=== PATIENT | male | born 1965 | race Caucasian/White ===

== ENCOUNTER 2019-09-13 17:12 | Inpatient (IN) | payer BC, OTHER ==
--- NOTE | 2019-09-13 17:47 | ER Document Report ---
ED General - General Chief Complaint: Palpitations Stated Complaint: RAPID HEART RATE Time Seen by Provider: 09/13/19 17:42 Notes: 54-year-old man presents to the emergency department with a history of upper respiratory tract infection with associated cough seen approximately 1 week ago at the urgent care and started on Augmentin. He went to see his primary care doctor earlier in the week, the Augmentin was discontinued because of diarrhea and he was given a different antibiotic. He presented to the clinic today for follow-up, continued cough and was found to be tachycardic in the 140-160 range. Patient has a history of CAD and a stent performed in 2016. Because of the cardiac history and the resting tachycardia, he was sent to the emergency department for further evaluation and treatment. Patient denies chest pain, he has shortness of breath with exertion and continued coughing. He denies any excessive swelling or fever. TRAVEL OUTSIDE OF THE [place] IN LAST 30 DAYS: No - Related Data Allergies/Adverse Reactions: No Known Allergies Allergy (Verified 01/29/16 22:19) Past Medical History - General Information source: Patient - Social History Smoking Status: Unknown if Ever Smoked Family History: Reviewed & Not Pertinent Review of Systems - Review of Systems Notes: Constitutional: Negative for fever. HENT: Negative for sore throat. Eyes: Negative for visual changes. Cardiovascular: + Tachycardia, negative for chest pain. Respiratory: + Cough, + shortness of breath. Gastrointestinal: Negative for abdominal pain, vomiting or diarrhea. Genitourinary: Negative for dysuria. Musculoskeletal: Negative for back pain. Skin: Negative for rash. Neurological: Negative for headaches, weakness or numbness. 10 point ROS negative except as marked above and in HPI. Physical Exam - Vital signs Vitals: Temp Pulse Resp BP Pulse Ox 98.2 F 148 H 22 H 123/82 96 09/13/19 17:28 09/13/19 17:28 09/13/19 17:28 09/13/19 17:28 09/13/19 17:28 - Notes Notes: PHYSICAL EXAMINATION: Physical Exam: General: Morbidly obese 54-year-old man in no acute distress HEENT: NC/AT, pupils equal round and reactive to light, MM moist,nares clear, oropharynx clear, airway patent Neck: supple, no adenopathy, no masses. Good range of motion Lungs: clear, no wheezing, no rales no rhonchi CVS: Tachycardic, rate and rhythm no murmur gallop or rub Abdomen: Soft, active, nontender, no masses, no hepatosplenomegaly Ext: No edema, clubbing or cyanosis. Neuro: Alert and responsive, moving all 4 extremities on command, cranial nerves intact, no focal findings Skin: Intact no open lesions, no rash PSYCH: Normal mood, normal affect. Course - Re-evaluation Re-evalutation: 09/13/19 20:11 Patient was given IV dose of Cardizem and metoprolol, rate slowed down to approximately 118, he then developed a flutter/A. fib with a 2-1 AV block. Presently the patient is in a normal sinus rhythm with a rhythm rate of 76. I have discussed the patient with Dr. Greene the primary physician and he had requested chest x-ray, CTA, Eliquis while the patient was in the A. fib rhythm. He is being recontacted regarding the conversion to sinus rhythm. - Vital Signs Vital signs: Temp Pulse Resp BP Pulse Ox 97.7 F 79 18 125/76 100 09/14/19 08:17 09/14/19 08:17 09/14/19 08:17 09/14/19 08:17 09/14/19 08:17 - Laboratory Result Diagrams: 09/14/19 04:22 09/14/19 04:22 Laboratory results interpreted by me: 09/13/19 09/13/19 17:36 17:36 RDW 14.2 H ALT 53 H Creatine Kinase 647 H - EKG Interpretation by Tn Rate: Tachycardia - Initial EKG: Sinus tachycardia rate of 148. Repeat EKG reveals atrial flutter with a 2-1 AV block, borderline prolonged QT interval rate of 122. Third EKG normal sinus rhythm, rate of 75. Discharge - Discharge Clinical Impression: Atrial flutter with rapid ventricular response, Cough, Body mass index (BMI) greater than or equal to 70 in adult Condition: Good Disposition: ADMITTED INPATIENT Admitting Provider: Jc Unit Admitted: [facility]
[2019-09-13] MEDS: NORMAL SALINE 1000 ML 1,000 ML IV PRN ×2 (18:11→19:31)
[2019-09-13 18:51] LABS: ABSOLUTE EOSINOPHILS # (AUTO) 0.1 10^3/uL (0.0-0.6); ABSOLUTE LYMPHOCYTES (AUTO) 1.5 10^3/uL (0.5-4.7); ABSOLUTE MONOCYTES (AUTO) 0.5 10^3/uL (0.1-1.4); ABSOLUTE NEUT (AUTO) 2.5 10^3/uL (1.7-8.2); BASOPHILS % (AUTO) 0.2 % (0-2); EOSINOPHILS % (AUTO) 1.5 % (0-6); HEMATOCRIT 42.9 % (37.9-51.0); HEMOGLOBIN 14.3 g/dL (13.5-17.0); LYMPHOCYTES % (AUTO) 33.4 % (13-45); MEAN CORPUSCULAR HEMOGLOBIN 29.2 pg (27.0-33.4); MEAN CORPUSCULAR HGB CONC 33.4 g/dL (32.0-36.0); MEAN CORPUSCULAR VOLUME 87 fl (80-97); MONOCYTES % (AUTO) 10.3 % (3-13); PLATELET COUNT 192 10^3/uL (150-450); RED BLOOD COUNT 4.91 10^6/uL (4.35-5.55); RED CELL DISTRIBUTION WIDTH 14.2 % (11.5-14.0); SEGMENTED NEUTROPHILS % (AUTO) 54.6 % (42-78); TOTAL CELLS COUNTED % (AUTO) 100 %; WHITE BLOOD COUNT 4.6 10^3/uL (4.0-10.5)
[2019-09-13 18:56] LABS: ALBUMIN 3.9 g/dL (3.5-5.0); ALKALINE PHOSPHATASE 84 U/L (38-126); ANION GAP 8 (5-19); ASPARTATE AMINO TRANSFERASE 52 U/L (17-59); BILIRUBIN,DIRECT 0.2 mg/dL (0.0-0.4); BILIRUBIN,TOTAL 0.8 mg/dL (0.2-1.3); BLOOD UREA NITROGEN 16 mg/dL (7-20); CALCIUM 9.1 mg/dL (8.4-10.2); CARBON DIOXIDE 30 mmol/L (22-30); CHLORIDE 102 mmol/L (98-107); CREATINE KINASE 647 U/L (55-170); GLUCOSE 110 mg/dL (75-110)
[2019-09-13] MEDS ORDERED: METOPROLOL TARTRATE PF/INJ 5 MG/5 ML SDV IV ONE (18:56)
[2019-09-13] MEDS ORDERED: GUAIFENESIN/D-METHORPHAN (200-20 MG) SYRUP 10 ML PO ONE (18:56)
[2019-09-13] MEDS ORDERED: DILTIAZEM HCL INJ 25 MG/5 ML VIAL IV ONE (18:58)
[2019-09-13 19:08] LABS: CREATINE KINASE MB 1.04 ng/mL (<4.55); TROPONIN I 0.013 ng/mL
[2019-09-13] MEDS ORDERED: APIXABAN 5 MG TABLET PO ONE (19:46)
--- NOTE | 2019-09-13 20:57 | RADIOLOGY REPORT (SQ) ---
XR CHEST 1 VIEW EXAM DATE: 09/13/2019 7:47 PM MEDICAL BILLING CLERK HISTORY: Cough. COMPARISON: 01/29/2016 FINDINGS: Stable cardiomegaly without pulmonary vascular congestion. No focal consolidation is identified. No pleural effusions or pneumothorax. IMPRESSION: No evidence of acute cardiopulmonary disease.
--- NOTE | 2019-09-13 21:15 | PDOC H&P ---
History of Present Illness Admission Date/PCP: CEFERINO FREY MD Patient complains of: Tachycardia persistent cough History of Present Illness: MARK BLACKBURN is a 54 year old male This is a 54-year-old male's with a history of the coronary artery disease status post stent placement history of the hypertension hyperlipidemia sleep apnea morbid obesity type 2 diabetes struggling from the cough for the last 2 weeks initially went to the urgent care but patient was prescribed Augmentin and patients developed diarrhea came back to the office stop the Augmentin and start on Omnicef and a cough drops Patient still persistent cough and according to the patient is a dry cough and a hacking cough does not produce any sputum no fever no chills Patient also came to the office today because of uncontrolled cough on and off with episodic in office patient's pulse ox is 97% but patient's heart rate is running 1 40-1 60 range EKG was performed in the office was persistent with the 140 heart rate with the sinus tachycardia with possible a flutter decided to send to the emergency departments In the ER patient heart rate was running 140+ with the a flutter patient is giving the Cardizem's and p.o. metoprolol and converted to sinus rhythms At this point decided to admit the patient for further evaluations Patient's otherwise denied any chest pain no short of breath except that cough Patient was taking the robitussin DM and has several Drops for the last 1 week Past Medical History Cardiac Medical History: Reports: Coronary Artery Disease, Myocardial Infarction, Hyperlipidema, Hypertension Pulmonary Medical History: Reports: Sleep Apnea Endocrine Medical History: Reports: Diabetes Mellitus Type 2 Past Surgical History Past Surgical History: Reports: Cardiac Catheterization Social History Information Source: Patient Smoking Status: Never Smoker Electronic Cigarette use?: No Hx Recreational Drug Use: No Family History Family History: Reviewed & Not Pertinent Parental Family History Reviewed: Yes Children Family History Reviewed: Yes Sibling(s) Family History Reviewed.: Yes Medication/Allergy Allergies/Adverse Reactions: No Known Allergies Allergy (Verified 01/29/16 22:19) Review of Systems Constitutional: ABSENT: chills, fever(s), headache(s), weight gain, weight loss Eyes: ABSENT: visual disturbances Ears: ABSENT: hearing changes Cardiovascular: ABSENT: chest pain, dyspnea on exertion, edema, orthropnea, palpitations Respiratory: PRESENT: cough. ABSENT: hemoptysis Gastrointestinal: ABSENT: abdominal pain, constipation, diarrhea, hematemesis, hematochezia, nausea, vomiting Genitourinary: ABSENT: dysuria, hematuria Musculoskeletal: ABSENT: joint swelling Integumentary: ABSENT: rash, wounds Neurological: ABSENT: abnormal gait, abnormal speech, confusion, dizziness, focal weakness, syncope Psychiatric: ABSENT: anxiety, depression, homidical ideation, suicidal ideation Endocrine: ABSENT: cold intolerance, heat intolerance, menstrual abnormalities, polydipsia, polyuria Hematologic/Lymphatic: ABSENT: easy bleeding, easy bruising, lymphadenopathy Physical Exam Vital Signs: Temp Pulse Resp BP Pulse Ox 97.9 F 148 H 26 H 142/106 H 96 09/13/19 19:37 09/13/19 17:28 09/13/19 20:01 09/13/19 20:01 09/13/19 20:01 Intake & Output 09/12/19 09/13/19 09/14/19 06:59 06:59 06:59 Intake Total 1999 Balance 1999 Weight 206 kg General appearance: PRESENT: no acute distress, well-developed, well-nourished Head exam: PRESENT: atraumatic, normocephalic Eye exam: PRESENT: conjunctiva pink, EOMI, PERRLA. ABSENT: scleral icterus Ear exam: PRESENT: normal external ear exam Mouth exam: PRESENT: moist, tongue midline Neck exam: PRESENT: full ROM. ABSENT: carotid bruit, JVD, lymphadenopathy, thyromegaly Respiratory exam: PRESENT: decreased breath sounds Cardiovascular exam: PRESENT: RRR, tachycardia. ABSENT: diastolic murmur, rubs, systolic murmur Pulses: PRESENT: normal dorsalis pedis pul, +2 pedal pulses bilateral Vascular exam: PRESENT: normal capillary refill GI/Abdominal exam: PRESENT: normal bowel sounds, soft. ABSENT: distended, guarding, mass, organolmegaly, rebound, tenderness Rectal exam: PRESENT: deferred Extremities exam: ABSENT: pedal edema Musculoskeletal exam: PRESENT: ambulatory Neurological exam: PRESENT: alert, awake, oriented to person, oriented to place, oriented to time, oriented to situation, CN II-XII grossly intact. ABSENT: motor sensory deficit Psychiatric exam: PRESENT: appropriate affect, normal mood. ABSENT: homicidal ideation, suicidal ideation Skin exam: PRESENT: dry, intact, warm. ABSENT: cyanosis, rash Results Laboratory Results: 09/13/19 17:36 09/13/19 17:36 09/13/19 09/13/19 17:36 17:36 WBC 4.6 RBC 4.91 Hgb 14.3 Hct 42.9 MCV 87 MCH 29.2 MCHC 33.4 RDW 14.2 H Plt Count 192 Seg Neutrophils % 54.6 Sodium 139.5 Potassium 4.0 Chloride 102 Carbon Dioxide 30 Anion Gap 8 BUN 16 Creatinine 1.00 Est GFR ( Amer) > 60 Glucose 110 Calcium 9.1 Total Bilirubin 0.8 AST 52 Alkaline Phosphatase 84 Total Protein 7.0 Albumin 3.9 09/13/19 09/13/19 17:36 17:36 Creatine Kinase 647 H CK-MB (CK-2) 1.04 Troponin I 0.013 Impressions: Chest X-Ray 09/13/19 19:47 IMPRESSION: No evidence of acute cardiopulmonary disease. Assessment & Plan - Diagnosis (1) Atrial flutter with rapid ventricular response Is this a current diagnosis for this admission?: Yes Plan: Patient is converted to sinus rhythms Start the patient on a Cardizem Put in the IMCU Consult the cardiology Patient's last echocardiogram done in December [address] Nolasco with normal EF no other abnormalities (2) Cough Is this a current diagnosis for this admission?: Yes Plan: Going for 2 weeks cough most likely had dry hacking cough We will start the patient on the steroids and the doxycycline (3) Hypertension Qualifiers: Hypertension type: essential hypertension Qualified Code(s): I10 - Essential (primary) hypertension Is this a current diagnosis for this admission?: Yes Plan: Reduce the current medications (4) Hyperlipidemia Qualifiers: Hyperlipidemia type: unspecified Qualified Code(s): E78.5 - Hyperlipidemia, unspecified Is this a current diagnosis for this admission?: Yes Plan: Continues a statin (5) Sleep apnea Qualifiers: Sleep apnea type: unspecified type Qualified Code(s): G47.30 - Sleep apnea, unspecified Is this a current diagnosis for this admission?: Yes Plan: Continue CPAP (6) Coronary artery disease Qualifiers: Coronary Disease-Associated Artery/Lesion type: unspecified vessel or lesion type Associated angina: without angina Is this a current diagnosis for this admission?: Yes (7) Type 2 diabetes mellitus 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: without intermediate use Is this a current diagnosis for this admission?: Yes - Time Time Spent: 50 to 70 Minutes Medications reviewed and adjusted accordingly: Yes Anticipated discharge: Home Within: Other - Inpatient Certification Based on my medical assessment, after consideration of the patient's comorbidities, presenting symptoms, or acuity I expect that the services needed warrant INPATIENT care.: Yes I certify that my determination is in accordance with my understanding of Medicare's requirements for reasonable and necessary INPATIENT services [42 CFR 412.3e].: Yes Medical Necessity: Failure to Improve With Outpatient Therapy, Significant Comorbidiites Make Outpatient Treatment Too Risky, Need For IV Fluids, Need for IV Antibiotics Post Hospital Care: D/C Mess Cook Documentation - Plan Summary Plan Summary: Admit the patient's in the IMCU
[2019-09-13] MEDS ORDERED: ACETAMINOPHEN 325 MG TABLET PO PRN (21:16)
[2019-09-13] MEDS ORDERED: NORMAL SALINE 1000 ML 1,000 ML IV PRN (21:16)
--- NOTE | 2019-09-13 21:24 | RADIOLOGY REPORT (SQ) ---
CT CHEST ANGIOGRAPHY WITHOUT THEN WITH IV CONTRAST EXAM DATE: 09/13/2019 7:45 PM LINE PRODUCTION COOK HISTORY: Shortness of breath. COMPARISON: None. TECHNIQUE: CT angiogram of the chest with IV contrast. 3-D MIP images were obtained in coronal and sagittal reconstructions. This exam was performed according to our departmental dose-optimization program, which includes automated exposure control, adjustment of the mA and/or kV according to patient size and/or use of iterative reconstruction technique. FINDINGS: No filling defects are seen in the pulmonary trunk or the left and right main pulmonary artery. There is limited evaluation of the segmental branches due to suboptimal bolus timing. The thyroid gland is normal. No mediastinal or hilar adenopathy. The heart size is normal without pericardial effusion. The thoracic aorta is normal caliber. No consolidation, pleural effusion, or pneumothorax is identified. The visualized upper abdomen demonstrates no acute findings. No acute osseous findings are seen. IMPRESSION: No central pulmonary embolism.
[2019-09-13] MEDS: DILTIAZEM HCL 30 MG TABLET PO SCH (21:31)
[2019-09-13] MEDS: GUAIFENESIN 600 MG TABLET.SA PO SCH (21:31)
[2019-09-13] MEDS ORDERED: GLUCAGON,HUMAN RECOMB 1 MG INJ IM PRN (21:31)
[2019-09-13] MEDS ORDERED: DEXTROSE 50%-WATER 25 GM/50 ML DISP.SYRIN IV PRN ×2 (21:31)
[2019-09-13] MEDS: FAMOTIDINE 20 MG TABLET PO SCH (21:31)
[2019-09-13] MEDS ORDERED: DEXTROSE 40% GEL 15 GM TUBE PO PRN ×2 (21:31)
[2019-09-13] MEDS: DOXYCYCLINE HYCLATE 100 MG TABLET PO SCH (21:31)
[2019-09-13] MEDS: INSULIN LISPRO 100 UNIT/ML 3 ML VIAL SUBCUT SCH (21:42)
[2019-09-13 22:50] LABS: CREATINE KINASE MB 0.9 ng/mL (<4.55); TROPONIN I 0.017 ng/mL
[2019-09-14 00:04] LABS: APPEARANCE,URINE CLEAR; BILIRUBIN,URINE NEGATIVE (NEGATIVE); COLOR,URINE YELLOW; GLUCOSE, URINE NEGATIVE (NEGATIVE); KETONES,URINE NEGATIVE (NEGATIVE); LEUKOCYTE ESTERASE,URINE NEGATIVE (NEGATIVE); NITRITE,URINE NEGATIVE (NEGATIVE); PROTEIN,URINE NEGATIVE (NEGATIVE); URINE SPECIFIC GRAVITY 1.058
[2019-09-14 05:26] LABS: ABSOLUTE EOSINOPHILS # (AUTO) 0.1 10^3/uL (0.0-0.6); ABSOLUTE LYMPHOCYTES (AUTO) 1.1 10^3/uL (0.5-4.7); ABSOLUTE MONOCYTES (AUTO) 0.4 10^3/uL (0.1-1.4); ABSOLUTE NEUT (AUTO) 1.9 10^3/uL (1.7-8.2); BASOPHILS % (AUTO) 0.3 % (0-2); EOSINOPHILS % (AUTO) 1.7 % (0-6); HEMATOCRIT 36.3 % (37.9-51.0); LYMPHOCYTES % (AUTO) 31.3 % (13-45); MEAN CORPUSCULAR HEMOGLOBIN 29.1 pg (27.0-33.4); MEAN CORPUSCULAR HGB CONC 33.3 g/dL (32.0-36.0); MEAN CORPUSCULAR VOLUME 87 fl (80-97); MONOCYTES % (AUTO) 10.9 % (3-13); PLATELET COUNT 173 10^3/uL (150-450); RED BLOOD COUNT 4.15 10^6/uL (4.35-5.55); SEGMENTED NEUTROPHILS % (AUTO) 55.8 % (42-78); TOTAL CELLS COUNTED % (AUTO) 100 %; WHITE BLOOD COUNT 3.5 10^3/uL (4.0-10.5)
[2019-09-14 05:29] LABS: HEMOGLOBIN 12.1 g/dL (13.5-17.0)
[2019-09-14] MEDS: DILTIAZEM HCL 30 MG TABLET PO SCH (05:31)
[2019-09-14 05:43] LABS: ALBUMIN 3.2 g/dL (3.5-5.0); ALKALINE PHOSPHATASE 76 U/L (38-126); ANION GAP 7 (5-19); ASPARTATE AMINO TRANSFERASE 45 U/L (17-59); BILIRUBIN,DIRECT 0.2 mg/dL (0.0-0.4); BLOOD UREA NITROGEN 15 mg/dL (7-20); CALCIUM 8.3 mg/dL (8.4-10.2); CARBON DIOXIDE 28 mmol/L (22-30); CHLORIDE 104 mmol/L (98-107); GLUCOSE 111 mg/dL (75-110)
[2019-09-14 05:52] LABS: CREATINE KINASE MB 2.1 ng/mL (<4.55); TROPONIN I 0.013 ng/mL
[2019-09-14] MEDS ORDERED: PANTOPRAZOLE SODIUM 40 MG TABLET.DR PO SCH (06:00)
[2019-09-14] MEDS ORDERED: GUAIFENESIN SYRP 200 MG/10 ML UDC PO PRN (06:57)
[2019-09-14] MEDS: INSULIN LISPRO 100 UNIT/ML 3 ML VIAL SUBCUT SCH ×2 (08:46→13:28)
[2019-09-14] MEDS: FAMOTIDINE 20 MG TABLET PO SCH (09:31)
[2019-09-14] MEDS: DOXYCYCLINE HYCLATE 100 MG TABLET PO SCH (09:31)
[2019-09-14] MEDS: GUAIFENESIN 600 MG TABLET.SA PO SCH (09:31)
--- NOTE | 2019-09-14 09:51 | PDOC PROGRESS REPORT ---
Subjective Progress Note for:: 09/14/19 Subjective:: Patient is currently doing well Patient is currently in a sinus rhythm Patient's denied any chest pain no short of breath Patient's cough is improving Reason For Visit: ATRIL FLUTTER,COUGH Physical Exam Vital Signs: Temp Pulse Resp BP Pulse Ox 97.7 F 79 18 125/76 100 09/14/19 08:17 09/14/19 08:17 09/14/19 08:17 09/14/19 08:17 09/14/19 08:17 Intake & Output 09/13/19 09/14/19 09/15/19 06:59 06:59 06:59 Intake Total 2300 Output Total 275 Balance 2024 Weight 207.5 kg General appearance: PRESENT: no acute distress, well-developed, well-nourished Head exam: PRESENT: atraumatic, normocephalic Eye exam: PRESENT: conjunctiva pink, EOMI, PERRLA. ABSENT: scleral icterus Ear exam: PRESENT: normal external ear exam Mouth exam: PRESENT: moist, tongue midline Neck exam: PRESENT: full ROM. ABSENT: carotid bruit, JVD, lymphadenopathy, thyromegaly Respiratory exam: PRESENT: clear to auscultation wilma Cardiovascular exam: PRESENT: RRR. ABSENT: diastolic murmur, rubs, systolic murmur Pulses: PRESENT: normal dorsalis pedis pul, +2 pedal pulses bilateral Vascular exam: PRESENT: normal capillary refill GI/Abdominal exam: PRESENT: normal bowel sounds, soft. ABSENT: distended, guarding, mass, organolmegaly, rebound, tenderness Rectal exam: PRESENT: deferred Extremities exam: ABSENT: pedal edema Musculoskeletal exam: PRESENT: ambulatory Neurological exam: PRESENT: alert, awake, oriented to person, oriented to place, oriented to time, oriented to situation, CN II-XII grossly intact. ABSENT: motor sensory deficit Psychiatric exam: PRESENT: appropriate affect, normal mood. ABSENT: homicidal ideation, suicidal ideation Skin exam: PRESENT: dry, intact, warm. ABSENT: cyanosis, rash Results Laboratory Results: 09/14/19 04:22 09/14/19 04:22 09/13/19 09/13/19 09/13/19 17:36 17:36 22:03 WBC 4.6 RBC 4.91 Hgb 14.3 Hct 42.9 MCV 87 MCH 29.2 MCHC 33.4 RDW 14.2 H Plt Count 192 Seg Neutrophils % 54.6 Sodium 139.5 Potassium 4.0 Chloride 102 Carbon Dioxide 30 Anion Gap 8 BUN 16 Creatinine 1.00 Est GFR ( Amer) > 60 Glucose 110 Calcium 9.1 Magnesium Total Bilirubin 0.8 AST 52 Alkaline Phosphatase 84 Total Protein 7.0 Albumin 3.9 TSH 3.04 Urine Color Urine Appearance Urine pH Ur Specific [place] Urine Protein Urine Glucose (UA) Urine Ketones Urine Blood Urine Nitrite Ur Leukocyte Esterase Urine WBC (Auto) Urine RBC (Auto) 09/13/19 09/14/19 09/14/19 23:29 04:22 04:22 WBC 3.5 L RBC 4.15 L Hgb 12.1 L D Hct 36.3 L MCV 87 MCH 29.1 MCHC 33.3 RDW 14.0 Plt Count 173 Seg Neutrophils % 55.8 Sodium 138.5 Potassium 4.0 Chloride 104 Carbon Dioxide 28 Anion Gap 7 BUN 15 Creatinine 0.92 Est GFR ( Amer) > 60 Glucose 111 H Calcium 8.3 L Magnesium 2.2 Total Bilirubin 1.0 AST 45 Alkaline Phosphatase 76 Total Protein 6.0 L Albumin 3.2 L TSH Urine Color YELLOW Urine Appearance CLEAR Urine pH 5.0 Ur Specific [place] 1.058 Urine Protein NEGATIVE Urine Glucose (UA) NEGATIVE Urine Ketones NEGATIVE Urine Blood NEGATIVE Urine Nitrite NEGATIVE Ur Leukocyte Esterase NEGATIVE Urine WBC (Auto) 1 Urine RBC (Auto) 1 09/13/19 09/13/19 09/13/19 17:36 17:36 22:03 Creatine Kinase 647 H 617 H CK-MB (CK-2) 1.04 Troponin I 0.013 09/13/19 09/14/19 09/14/19 22:03 04:22 04:22 Creatine Kinase 599 H CK-MB (CK-2) 0.90 2.10 Troponin I 0.017 0.013 Impressions: Chest/Abdomen CTA 09/13/19 19:45 IMPRESSION: No central pulmonary embolism. Chest X-Ray 09/13/19 19:47 IMPRESSION: No evidence of acute cardiopulmonary disease. Assessment & Plan - Diagnosis (1) Atrial flutter with rapid ventricular response Is this a current diagnosis for this admission?: Yes Plan: Lately converted to the sinus rhythm will wait for the cardiology (2) Cough Is this a current diagnosis for this admission?: Yes Plan: doxycycline's and the (3) Hypertension Qualifiers: Hypertension type: essential hypertension Qualified Code(s): I10 - Essential (primary) hypertension Is this a current diagnosis for this admission?: Yes (4) Hyperlipidemia Qualifiers: Hyperlipidemia type: unspecified Qualified Code(s): E78.5 - Hyperlipidemia, unspecified Is this a current diagnosis for this admission?: Yes (5) Sleep apnea Qualifiers: Sleep apnea type: unspecified type Qualified Code(s): G47.30 - Sleep apnea, unspecified Is this a current diagnosis for this admission?: Yes (6) Coronary artery disease Qualifiers: Coronary Disease-Associated Artery/Lesion type: unspecified vessel or lesion type Associated angina: without angina Is this a current diagnosis for this admission?: Yes (7) Type 2 diabetes mellitus 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
[2019-09-14] MEDS ORDERED: PREDNISONE 20 MG TABLET PO SCH (10:00)
[2019-09-14] MEDS ORDERED: ENOXAPARIN SODIUM INJ 40 MG/0.4 ML DISP.SYRIN SUBCUT SCH (10:00)
[2019-09-14] MEDS ORDERED: LOSARTAN POTASSIUM 50 MG TABLET PO SCH (11:00)
[2019-09-14] MEDS ORDERED: METOPROLOL TARTRATE 50 MG TABLET PO SCH (11:00)
[2019-09-14] MEDS ORDERED: CLOPIDOGREL BISULFATE 75 MG TABLET PO SCH (11:00)
[2019-09-14] MEDS ORDERED: EZETIMIBE 10 MG TABLET PO SCH (11:00)
[2019-09-14] MEDS ORDERED: ASPIRIN 81 MG TABLET, ENT COATED PO SCH (11:00)
[2019-09-14 11:29] LABS: CREATINE KINASE MB 3.09 ng/mL (<4.55)
[2019-09-14 11:30] LABS: TROPONIN I < 0.012 ng/mL
--- NOTE | 2019-09-14 12:26 | PDOC CONSULTATION ---
Consultation Consult Date: 09/14/19 Attending physician:: CEFERINO FREY Provider Consulted: BRIAN URIARTE Consult reason:: Atrial flutter fibrillation History of Present Illness Admission Date/PCP: 09/13/19 21:00 CEFERINO FREY MD Patient complains of: Shortness of breath History of Present Illness: MARK BLACKBURN is a 54 year old male, who was admitted through the emergency department after being sent from primary care physician's office because of elevated heart rate of 140. Patient claims that he has been recently suffering from cold and cough symptoms and was taking some OTC cough medication, mainly Robitussin-DM. He also had a course of antibiotics. Initially he had Augmentin which caused him to have diarrhea and subsequently changed to another antibiotics. In the emergency room patient was noted to be in atrial flutter fibrillation with increased heart rate response. Patient was given Cardizem and beta-melody following which he converted. He remains in sinus rhythm this morning and is wanting to go home. A 2D echo was ordered but can be performed as an outpatient now. Patient has history of sleep apnea and he claims compliance with it. Past Medical History Cardiac Medical History: Reports: Coronary Artery Disease, Myocardial Infarction, Hyperlipidema, Hypertension Pulmonary Medical History: Reports: Sleep Apnea Endocrine Medical History: Reports: Diabetes Mellitus Type 2 Past Surgical History Past Surgical History: Reports: Cardiac Catheterization, Coronary Stent Social History Information Source: Patient Smoking Status: Unknown if Ever Smoked Electronic Cigarette use?: No Hx Recreational Drug Use: No - Advance Directive Resuscitation Status: Full Code Family History Family History: Reviewed & Not Pertinent, Hypertension Parental Family History Reviewed: Yes Children Family History Reviewed: Yes Sibling(s) Family History Reviewed.: Yes Medication/Allergy Home Medications: Aspirin [Ecotrin 81 mg EC Tablet] 81 mg PO DAILY 09/14/19 Atorvastatin Calcium [Lipitor 80 mg Tablet] 80 mg PO QHS 09/14/19 Clopidogrel Bisulfate [Plavix 75 mg Tablet] 75 mg PO DAILY 09/14/19 Ezetimibe [Zetia 10 mg Tablet] 10 mg PO DAILY 09/14/19 Losartan Potassium 100 mg PO DAILY 09/14/19 Metformin HCl [Metformin HCl ER] 500 mg PO DAILY 09/14/19 Metoprolol Tartrate [Lopressor 50 mg Tablet] 50 mg PO DAILY 09/14/19 Pantoprazole Sodium [Protonix [address] Tablet] 40 mg PO DAILY #30 tablet. 09/14/19 Allergies/Adverse Reactions: No Known Allergies Allergy (Verified 01/29/16 22:19) Review of Systems Constitutional: PRESENT: other - Recent cold and cough symptoms.. ABSENT: chills, fever(s), headache(s), weight gain, weight loss Eyes: ABSENT: visual disturbances Ears: ABSENT: hearing changes Cardiovascular: ABSENT: chest pain, dyspnea on exertion, edema, orthropnea, palpitations Respiratory: ABSENT: cough, hemoptysis Gastrointestinal: ABSENT: abdominal pain, constipation, diarrhea, hematemesis, hematochezia, nausea, vomiting Genitourinary: ABSENT: dysuria, hematuria Musculoskeletal: ABSENT: joint swelling Integumentary: ABSENT: rash, wounds Neurological: ABSENT: abnormal gait, abnormal speech, confusion, dizziness, focal weakness, syncope Psychiatric: ABSENT: anxiety, depression, homidical ideation, suicidal ideation Endocrine: ABSENT: cold intolerance, heat intolerance, polydipsia, polyuria Hematologic/Lymphatic: ABSENT: easy bleeding, easy bruising Physical Exam Vital Signs: Temp Pulse Resp BP Pulse Ox 97.7 F 79 18 125/76 100 09/14/19 08:17 09/14/19 08:17 09/14/19 08:17 09/14/19 08:17 09/14/19 08:17 Intake & Output 09/13/19 09/14/19 09/15/19 06:59 06:59 06:59 Intake Total 2300 Output Total 275 Balance 2024 Weight 207.5 kg General appearance: PRESENT: no acute distress, well-developed, well-nourished Head exam: PRESENT: atraumatic, normocephalic Eye exam: PRESENT: conjunctiva pink, EOMI, PERRLA. ABSENT: scleral icterus Ear exam: PRESENT: normal external ear exam Mouth exam: PRESENT: moist, tongue midline Neck exam: ABSENT: carotid bruit, JVD, lymphadenopathy, thyromegaly Respiratory exam: PRESENT: clear to auscultation [place]. ABSENT: rales, rhonchi, wheezes Cardiovascular exam: PRESENT: RRR. ABSENT: diastolic murmur, rubs, systolic murmur Pulses: PRESENT: normal dorsalis pedis pul Vascular exam: PRESENT: normal capillary refill GI/Abdominal exam: PRESENT: normal bowel sounds, soft. ABSENT: distended, guarding, mass, organolmegaly, rebound, tenderness Rectal exam: PRESENT: deferred Extremities exam: PRESENT: full ROM. ABSENT: calf tenderness, clubbing, pedal edema Neurological exam: PRESENT: alert, awake, oriented to person, oriented to place, oriented to time, oriented to situation, CN II-XII grossly intact. ABSENT: motor sensory deficit Psychiatric exam: PRESENT: appropriate affect, normal mood. ABSENT: homicidal ideation, suicidal ideation Skin exam: PRESENT: dry, intact, warm. ABSENT: cyanosis, rash Results Laboratory Results: 09/14/19 04:22 09/14/19 04:22 09/13/19 09/13/19 09/13/19 17:36 17:36 22:03 WBC 4.6 RBC 4.91 Hgb 14.3 Hct 42.9 MCV 87 MCH 29.2 MCHC 33.4 RDW 14.2 H Plt Count 192 Seg Neutrophils % 54.6 Sodium 139.5 Potassium 4.0 Chloride 102 Carbon Dioxide 30 Anion Gap 8 BUN 16 Creatinine 1.00 Est GFR ( Amer) > 60 Glucose 110 Calcium 9.1 Magnesium Total Bilirubin 0.8 AST 52 Alkaline Phosphatase 84 Total Protein 7.0 Albumin 3.9 TSH 3.04 Urine Color Urine Appearance Urine pH Ur Specific [place] Urine Protein Urine Glucose (UA) Urine Ketones Urine Blood Urine Nitrite Ur Leukocyte Esterase Urine WBC (Auto) Urine RBC (Auto) 09/13/19 09/14/19 09/14/19 23:29 04:22 04:22 WBC 3.5 L RBC 4.15 L Hgb 12.1 L D Hct 36.3 L MCV 87 MCH 29.1 MCHC 33.3 RDW 14.0 Plt Count 173 Seg Neutrophils % 55.8 Sodium 138.5 Potassium 4.0 Chloride 104 Carbon Dioxide 28 Anion Gap 7 BUN 15 Creatinine 0.92 Est GFR ( Amer) > 60 Glucose 111 H Calcium 8.3 L Magnesium 2.2 Total Bilirubin 1.0 AST 45 Alkaline Phosphatase 76 Total Protein 6.0 L Albumin 3.2 L TSH Urine Color YELLOW Urine Appearance CLEAR Urine pH 5.0 Ur Specific [place] 1.058 Urine Protein NEGATIVE Urine Glucose (UA) NEGATIVE Urine Ketones NEGATIVE Urine Blood NEGATIVE Urine Nitrite NEGATIVE Ur Leukocyte Esterase NEGATIVE Urine WBC (Auto) 1 Urine RBC (Auto) 1 09/13/19 09/13/19 09/13/19 17:36 17:36 22:03 Creatine Kinase 647 H 617 H CK-MB (CK-2) 1.04 Troponin I 0.013 09/13/19 09/14/19 09/14/19 22:03 04:22 04:22 Creatine Kinase 599 H CK-MB (CK-2) 0.90 2.10 Troponin I 0.017 0.013 09/14/19 09/14/19 10:08 10:08 Creatine Kinase 645 H CK-MB (CK-2) 3.09 Troponin I < 0.012 EKG Comments: Initial EKG shows atrial flutter with variable conduction but predominantly 2-1. No acute ST-T wave changes noted. Subsequent EKGs show sinus rhythm. This morning EKG shows sinus rhythm. Impressions: Chest/Abdomen CTA 09/13/19 19:45 IMPRESSION: No central pulmonary embolism. Chest X-Ray 09/13/19 19:47 IMPRESSION: No evidence of acute cardiopulmonary disease. Assessment & Plan - Diagnosis (2) Atrial flutter with rapid ventricular response Is this a current diagnosis for this admission?: Yes (3) Coronary artery disease Qualifiers: Coronary Disease-Associated Artery/Lesion type: unspecified vessel or lesion type Associated angina: without angina Is this a current diagnosis for this admission?: Yes (4) Hyperlipidemia Qualifiers: Hyperlipidemia type: unspecified Qualified Code(s): E78.5 - Hyperlipidemia, unspecified Is this a current diagnosis for this admission?: Yes (5) Hypertension Qualifiers: Hypertension type: essential hypertension Qualified Code(s): I10 - [place] [facility] (primary) hypertension Is this a current diagnosis for this admission?: Yes (6) Sleep apnea Qualifiers: Sleep apnea type: unspecified type Qualified Code(s): G47.30 - Sleep apnea, unspecified Is this a current diagnosis for this admission?: Yes (7) Type 2 diabetes mellitus Qualifiers: Diabetes mellitus manager long term care insulin use: without manager long term care use Diabetes mellitus complication status: with other specified complication Qualified Code(s): E11.69 - Type 2 diabetes mellitus with other specified complication Is this a current diagnosis for this admission?: Yes - Notes Notes: Atrial flutter with rapid ventricular response. Patient has [id number] score including diabetes and hypertension. Therefore could be a candidate for chronic anticoagulation. Patient would benefit from newer chronic anticoagulation such as Eliquis or Xarelto. As regards rate control, Cardizem probably preferred but could also use combination beta-melody and Cardizem. Coronary artery disease: Symptomatically stable. Patient medical regimen is satisfactory. Recommend high potency statin therapy. Dyslipidemia: Continue with hypotensive statin therapy. LDL goal should be less than 70 better yet less than 50. Hypertension: Blood pressure goal should be 135/85 or less. Sleep apnea: Patient maintains compliance with CPAP therapy. Diabetes: Patient being adequately managed by the primary special educator. Patient can follow-up with me after discharge. Patient given prescription for Eliquis 5 mg p.o. twice a day. He was advised to stop aspirin but continue with the Plavix. Further adjustment will be made on follow-up in the office when he brings all his medication. Patient was also given a prescription for metoprolol succinate 50 mg p.o. twice daily. Although patient was supposed to be taking metoprolol tartrate 50 mg twice a day, he told me that he was only taking it once. - Time Time Spent: 50 to 70 Minutes - More than 50% of the time spent coordinating care, discussing management plans with involved caregivers. Management plans discussed with involved personnels. Medical decision making was of moderate to high complexity, patient's has multiple comorbidities. Medications reviewed and adjusted accordingly: Yes
[2019-09-14 15:06] VITALS: BP 123/79
[2019-09-14] MEDS ORDERED: ATORVASTATIN CALCIUM 80 MG TABLET PO SCH (22:00)
--- NOTE | 2019-09-14 22:00 | EKG REPORT ---
SEVERITY:- NORMAL ECG - SINUS RHYTHM : Confirmed by: Alexey Nolasco 14-Sep-2019 22:00:04
--- NOTE | 2019-09-14 22:00 | EKG REPORT ---
SEVERITY:- NORMAL ECG - SINUS RHYTHM : Confirmed by: Alexey Nolasco 14-Sep-2019 22:00:12
--- NOTE | 2019-09-14 22:01 | EKG REPORT ---
SEVERITY:- ABNORMAL ECG - ATRIAL FLUTTER WITH VARIABLE AV BLOCK BORDERLINE PROLONGED QT INTERVAL : Confirmed by: Alexey Nolasco 14-Sep-2019 22:00:55
--- NOTE | 2019-09-15 10:10 | PDOC DISCHARGE SUMMARY ---
Impression - Admit/DC Date/PCP Admission Date/Primary Care Provider: 09/13/19 21:00 CEFERINO FREY MD Discharge Date: 09/15/19 - Discharge Diagnosis (1) Atrial flutter with rapid ventricular response Is this a current diagnosis for this admission?: Yes (2) Cough Is this a current diagnosis for this admission?: Yes (3) Hypertension Is this a current diagnosis for this admission?: Yes (4) Hyperlipidemia Is this a current diagnosis for this admission?: Yes (5) Sleep apnea Is this a current diagnosis for this admission?: Yes (6) Coronary artery disease Is this a current diagnosis for this admission?: Yes (7) Type 2 diabetes mellitus Is this a current diagnosis for this admission?: Yes - Additional Information Resuscitation Status: Full Code Discharge Activity: Activity As Tolerated Referrals: CEFERINO FREY MD [Primary Care Provider] - Follow up as needed Prescriptions: Apixaban [Eliquis 5 mg Tablet] 5 mg PO BID #60 tablet Pantoprazole Sodium [Protonix [address] Tablet] 40 mg PO DAILY #30 tablet.dr Metoprolol Succinate [Toprol Xl 50 mg Tab.sr] 50 mg PO BID #60 tab.sr.24h Doxycycline Hyclate [Vibramycin 100 mg Tablet] 100 mg PO Q12 #14 tablet Home Medications: Apixaban [Eliquis 5 mg Tablet] 5 mg PO BID #60 tablet 09/14/19 Atorvastatin Calcium [Lipitor 80 mg Tablet] 80 mg PO QHS 09/14/19 Clopidogrel Bisulfate [Plavix 75 mg Tablet] 75 mg PO DAILY 09/14/19 Doxycycline Hyclate [Vibramycin 100 mg Tablet] 100 mg PO Q12 #14 tablet 09/14/19 Ezetimibe [Zetia 10 mg Tablet] 10 mg PO DAILY 09/14/19 Losartan Potassium 100 mg PO DAILY 09/14/19 Metformin HCl [Metformin HCl ER] 500 mg PO DAILY 09/14/19 Metoprolol Succinate [Toprol Xl 50 mg Tab.sr] 50 mg PO BID #60 tab.sr.24h 09/14/19 Pantoprazole Sodium [Protonix [address] Tablet] 40 mg PO DAILY #30 tablet.dr 09/14/19 History of Present Illiness History of Present Illness: MARK BLACKBURN is a 54 year old male This is a 54-year-old male's with a history of the coronary artery disease status post stent placement history of the hypertension hyperlipidemia sleep apnea morbid obesity type 2 diabetes struggling from the cough for the last 2 weeks initially went to the urgent care but patient was prescribed Augmentin and patients developed diarrhea came back to the office stop the Augmentin and start on Omnicef and a cough drops Patient still persistent cough and according to the patient is a dry cough and a hacking cough does not produce any sputum no fever no chills Patient also came to the office today because of uncontrolled cough on and off with episodic in office patient's pulse ox is 97% but patient's heart rate is running 1 40-1 60 range EKG was performed in the office was persistent with the 140 heart rate with the sinus tachycardia with possible a flutter decided to send to the emergency departments In the ER patient heart rate was running 140+ with the a flutter patient is giving the Cardizem's and p.o. metoprolol and converted to sinus rhythms At this point decided to admit the patient for further evaluations Patient's otherwise denied any chest pain no short of breath except that cough Patient was taking the robitussin DM and has several Drops for the last 1 week Hospital Course Hospital Course: This is a 54-year-old male presented my office with the persistent cough and patient heart rate was around 1 40-1 60 range sent to the emergency department patient is diagnosed with atrial flutter and admitting in the hospitals Patient's chest x-ray CT angiogram all blood work is stable Patient seen by the cardiology Dr. Nolasco adjust the medications start on Eliquis Discussed with the patient's were extensively regarding the stop the aspirin continues the Plavix and Eliquis which increase the risk of the bleeding so discussed about the fall precautions Patient is very anxious to wants to go home's I believe patient always have issue with some financially and patient do not want to stay another day in the hospital Patient at this point discharged with the change cardiac medications patient was giving the doxycycline for the cough Patient is otherwise remained stable Patient is giving some steroid because of dry cough for the last 3 weeks and adjust the Metformin Patient's and discussed with the patient's to watch the sugar Patient's needs to follow in office in 1 week patient's need to follow-up with the cardiology Physical Exam Vital Signs: Temp Pulse Resp BP Pulse Ox 98.1 F 85 20 123/79 96 09/14/19 15:03 02/22/20 15:03 09/14/19 15:03 09/14/19 15:03 09/14/19 15:03 Intake & Output 09/14/19 09/15/19 09/16/19 06:59 06:59 06:59 Intake Total 2300 360 Output Total 275 Balance 2024 360 Weight 207.5 kg General appearance: PRESENT: no acute distress, well-developed, well-nourished Head exam: PRESENT: atraumatic, normocephalic Eye exam: PRESENT: conjunctiva pink, EOMI, PERRLA. ABSENT: scleral icterus Ear exam: PRESENT: normal external ear exam Mouth exam: PRESENT: moist, tongue midline Neck exam: ABSENT: carotid bruit, JVD, lymphadenopathy, thyromegaly Respiratory exam: PRESENT: clear to auscultation [place]. ABSENT: rales, rhonchi, wheezes Cardiovascular exam: PRESENT: RRR. ABSENT: diastolic murmur, rubs, systolic murmur Pulses: PRESENT: normal dorsalis pedis pul Vascular exam: PRESENT: normal capillary refill GI/Abdominal exam: PRESENT: normal bowel sounds, soft. ABSENT: distended, guarding, mass, organolmegaly, rebound, tenderness Rectal exam: PRESENT: deferred Extremities exam: PRESENT: full ROM. ABSENT: calf tenderness, clubbing, pedal edema Neurological exam: PRESENT: alert, awake, oriented to person, oriented to place, oriented to time, oriented to situation, CN II-XII grossly intact. ABSENT: motor sensory deficit Psychiatric exam: PRESENT: appropriate affect, normal mood. ABSENT: homicidal ideation, suicidal ideation Skin exam: PRESENT: dry, intact, warm. ABSENT: cyanosis, rash Results Laboratory Results: WBC 3.5 10^3/uL (4.0-10.5) L 09/14/19 04:22 RBC 4.15 10^6/uL (4.35-5.55) L 09/14/19 04:22 Hgb 12.1 g/dL (13.5-17.0) L D 09/14/19 04:22 Hct 36.3 % (37.9-51.0) L 09/14/19 04:22 MCV 87 fl (80-97) 09/14/19 04:22 MCH 29.1 pg (27.0-33.4) 09/14/19 04:22 MCHC 33.3 g/dL (32.0-36.0) 09/14/19 04:22 RDW 14.0 % (11.5-14.0) 09/14/19 04:22 Plt Count 173 10^3/uL (150-450) 09/14/19 04:22 Lymph % (Auto) 31.3 % (13-45) 09/14/19 04:22 [place] % (Auto) 10.9 % (3-13) 09/14/19 04:22 Eos % (Auto) 1.7 % (0-6) 09/14/19 04:22 Baso % (Auto) 0.3 % (0-2) 09/14/19 04:22 Absolute Neuts (auto) 1.9 10^3/uL (1.7-8.2) 09/14/19 04:22 Absolute Lymphs (auto) 1.1 10^3/uL (0.5-4.7) 09/14/19 04:22 Absolute Monos (auto) 0.4 10^3/uL (0.1-1.4) 09/14/19 04:22 Absolute Eos (auto) 0.1 10^3/uL (0.0-0.6) 09/14/19 04:22 Absolute Basos (auto) 0.0 10^3/uL (0.0-0.2) 09/14/19 04:22 Seg Neutrophils % 55.8 % (42-78) 09/14/19 04:22 Sodium 138.5 mmol/L (137-145) 09/14/19 04:22 Potassium 4.0 mmol/L (3.6-5.0) 09/14/19 04:22 Chloride 104 mmol/L (98-107) 09/14/19 04:22 Carbon Dioxide 28 mmol/L (22-30) 09/14/19 04:22 Anion Gap 7 (5-19) 09/14/19 04:22 BUN 15 mg/dL (7-20) 09/14/19 04:22 Creatinine 0.92 mg/dL (0.52-1.25) 09/14/19 04:22 Est GFR ( Amer) > 60 (>60) 09/14/19 04:22 Est GFR (MDRD) Non-Af > 60 (>60) 09/14/19 04:22 Glucose 111 mg/dL (75-110) H 09/14/19 04:22 POC Glucose 97 mg/dL (70-110) 09/13/19 21:36 Calcium 8.3 mg/dL (8.4-10.2) L 09/14/19 04:22 Magnesium 2.2 mg/dL (1.6-2.3) 09/14/19 04:22 Total Bilirubin 1.0 mg/dL (0.2-1.3) 09/14/19 04:22 Direct Bilirubin 0.2 mg/dL (0.0-0.4) 09/14/19 04:22 Neonat Total Bilirubin Not Reportable 09/14/19 04:22 Neonat Direct Bilirubin Not Reportable 09/14/19 04:22 Neonat Indirect Bili Not Reportable 09/14/19 04:22 AST 45 U/L (17-59) 09/14/19 04:22 ALT 42 U/L (<50) 09/14/19 04:22 Alkaline Phosphatase 76 U/L (38-126) 09/14/19 04:22 Creatine Kinase 645 U/L (55-170) H 09/14/19 10:08 CK-MB (CK-2) 3.09 ng/mL (<4.55) 09/14/19 10:08 Troponin I < 0.012 ng/mL 09/14/19 10:08 Total Protein 6.0 g/dL (6.3-8.2) L 09/14/19 04:22 Albumin 3.2 g/dL (3.5-5.0) L 09/14/19 04:22 TSH 3.04 uIU/mL (0.47-4.68) 09/13/19 22:03 Urine Color YELLOW 09/13/19 23:29 Urine Appearance CLEAR 09/13/19 23:29 Urine pH 5.0 (5.0-9.0) 09/13/19 23:29 Ur Specific [place] 1.058 09/13/19 23:29 Urine Protein NEGATIVE mg/dL (NEGATIVE) 09/13/19 23:29 Urine Glucose (UA) NEGATIVE mg/dL (NEGATIVE) 09/13/19 23:29 Urine Ketones NEGATIVE mg/dL (NEGATIVE) 09/13/19 23:29 Urine Blood NEGATIVE (NEGATIVE) 09/13/19 23:29 Urine Nitrite NEGATIVE (NEGATIVE) 09/13/19 23:29 Urine Bilirubin NEGATIVE (NEGATIVE) 09/13/19 23:29 Urine Urobilinogen 4.0 mg/dL (<2.0) H 09/13/19 23:29 Ur Leukocyte Esterase NEGATIVE (NEGATIVE) 09/13/19 23:29 Urine WBC (Auto) 1 /HPF 09/13/19 23:29 Urine RBC (Auto) 1 /HPF 09/13/19 23:29 Squamous Epi Cells Auto 2 /HPF 09/13/19 23:29 Urine Mucus (Auto) RARE /LPF 09/13/19 23:29 Urine Ascorbic Acid NEGATIVE (NEGATIVE) 09/13/19 23:29 09/13/19 09/13/19 09/14/19 17:36 22:03 04:22 CK-MB (CK-2) 1.04 0.90 2.10 Troponin I 0.013 0.017 0.013 09/14/19 10:08 CK-MB (CK-2) 3.09 Troponin I < 0.012 Impressions: Chest/Abdomen CTA 09/13/19 19:45 IMPRESSION: No central pulmonary embolism. Chest X-Ray 09/13/19 19:47 IMPRESSION: No evidence of acute cardiopulmonary disease. Plan Time Spent: Greater than 30 Minutes - Follow-up with the cardiology for further evaluations as outpatients seen here by Dr. Nolasco Follow in office 1 week Stroke Is this a Stroke Patient?: No Acute Heart Failure - Is this a Heart Failure Patient?: No
--- NOTE | 2019-09-16 10:49 | EKG REPORT ---
SEVERITY:- BORDERLINE ECG - ATRIAL FLUTTER 2:[address] DEPRESSION, DIFFUSE LEADS BORDERLINE PROLONGED QT INTERVAL : Confirmed on behalf of: Alexey Nolasco 16-Sep-2019 10:49:10
== END 2019-09-14 15:45 | disposition home or self-care (01) | DRG 310 ==
LOC: ER 17:12 → EH 21:00 → 3N 22:25
PROVIDERS: ADMIT Family Medicine; ATTEND Family Medicine
DX: I48.91 Unspecified atrial fibrillation (principal); G47.30 Sleep apnea, unspecified; I25.10 Atherosclerotic heart disease of native coronary artery without angina pectoris; E78.5 Hyperlipidemia, unspecified; I10 Essential (primary) hypertension; R05 Cough; E66.01 Morbid (severe) obesity due to excess calories; E11.9 Type 2 diabetes mellitus without complications; Z95.5 Presence of coronary angioplasty implant and graft; I25.2 Old myocardial infarction; Z82.49 Family history of ischemic heart disease and other diseases of the circulatory system; Z79.82 Long term (current) use of aspirin; Z79.899 Other long term (current) drug therapy; Z79.84 Long term (current) use of oral hypoglycemic drugs; Z79.01 Long term (current) use of anticoagulants
CPT/HCPCS: 36415; 71045; 71275; 80053; 81001; 82550; 82553; 82962; 83735; 84443; 84484; 85025; 87040; 93005; 93010; 96361; 96374; 96375; 99285; J3490; J7030; J7512